=== PATIENT | female | born 1970 | race African-American/Black ===

== ENCOUNTER 2021-07-04 08:01 | Inpatient (IN) | payer BC, MEDICAID ==
[~2021-07-04] VITALS: Ht 157.5 cm; Wt 63.0 kg
[2021-07-04] MEDS ORDERED: NACL 0.9% 2,000 ML IV ONE (08:05)
--- NOTE | 2021-07-04 08:12 | NUR ---
50 Y FEMALE BIBA FROM HOME DUE TO GENERAL WEAKNESS A RESULT OF HIGH BLOOD SUGAR. PER EMS "PT WAS TOO TIRED TO TAKE HER MEDICATION LAST NIGHT AND HAS BEEN WEAK ALL MORNING." UPON ASSESSMENT GLUCOSE LEVEL WAS 547. PT CURRENTLY DENIES ANY PAIN, N/V AT THIS TIME. PT STATED "SHE IS EXTREMELY TIRED AT THIS MOMENT" ALLERGIES: PENCILLIN HX: DM Addendum: 07/04/21 at 1128 by [email or web address] MEDICAL HX: DM, HTN, HDL
[2021-07-04 08:13] VITALS: BP 97/58
--- NOTE | 2021-07-04 08:24 | NUR ---
LAB BEDSIDE COLLECTING BLOOD WORK
--- NOTE | 2021-07-04 08:24 | NUR ---
CARLOS FIGUEROA COLLECTED BEDSIDE AND HANDED TO SENIOR ACCOUNT DIRECTOR
--- NOTE | 2021-07-04 08:42 | NUR ---
URINE COLLECTED FROM PATIENT.
--- NOTE | 2021-07-04 08:50 | NUR ---
PT PROVIDED WITH WARM BLANKET AND PT MOTHER BEDSIDE
[2021-07-04 08:54] LABS: HEMATOCRIT 43.2 % (36-48); HEMOGLOBIN 13.5 g/dL (12.0-16.0); MEAN CORPUSCULAR HEMOGLOBIN 30 pg (27-31); MEAN CORPUSCULAR HGB CONC 31 g/dL (33-37); MEAN CORPUSCULAR VOLUME 96.9 fL (80-94); PLATELET COUNT (AUTO) 227 K/uL (140-450); RED BLOOD CELL COUNT(AUTO) 4.46 MIL/uL (4.20-5.40); WHITE BLOOD COUNT (AUTO) 18.3 K/uL (4.8-10.8)
--- NOTE | 2021-07-04 08:58 | NUR ---
xray bedside with pt
[2021-07-04 09:07] LABS: ALBUMIN 2.9 g/dL (3.4-5.0); ANION GAP 41.4 (8-16); CREATININE 1.9 mg/dL (0.6-1.3); LYMPHOCYTES % (MANUAL) 23 % (20-46); MONOCYTES % (MANUAL) 10 % (5-12); POTASSIUM 4.3 mmol/L (3.5-5.1); TOTAL BILIRUBIN 0.5 mg/dL (0.0-1.0)
[2021-07-04 09:11] LABS: CARBON DIOXIDE 5.9 mmol/L (21-32)
--- NOTE | 2021-07-04 09:13 | NUR ---
CRITICAL LAB VALUES RECIEVED FROM LAB AND REPORTED TO DR. POWELL
[2021-07-04] MEDS ORDERED: INSULIN REGULAR, HUMAN 100 UNIT in NACL 0.9% 100 ML IV ONE ×2 (09:15)
[2021-07-04] MEDS ORDERED: NACL 0.45% 1,000 ML IV ONE (09:15)
[2021-07-04] MEDS ORDERED: POTASSIUM CHL 20 MEQ/ 1/2 NS 1,000 ML IV ONE (09:15)
--- NOTE | 2021-07-04 09:17 | NUR ---
PT PROVIDED WITH CUP OF WATER BEDSIDE
--- NOTE | 2021-07-04 10:23 | NUR ---
pt cleaned and provided fresh linen.
[2021-07-04] MEDS ORDERED: MAG SULF 2000 MG/WATER PREMIX 50 ML IV PRN (10:30)
[2021-07-04] MEDS ORDERED: POTASSIUM CHLORIDE 40 MEQ, LIDOCAINE MPF 1% 25 MG in NACL 0.9% 250 ML IV PRN (10:30)
[2021-07-04] MEDS ORDERED: MORPHINE SULFATE 2 MG/ML SYR IVP PRN (10:30)
[2021-07-04] MEDS ORDERED: ACETAMINOPHEN 325 MG TAB PO PRN (10:30)
[2021-07-04] MEDS ORDERED: DOCUSATE SODIUM 100 MG GELCAP PO PRN (10:30)
[2021-07-04] MEDS: NACL 0.9% 1,000 ML IV SCH ×3 (10:30→23:12)
[2021-07-04] MEDS ORDERED: DEXTROSE 50% 50 ML SYR IVP PRN (10:30)
[2021-07-04] MEDS ORDERED: INSULIN REGULAR, HUMAN 100 UNIT in NACL 0.9% 100 ML IV SCH ×2 (10:30)
[2021-07-04] MEDS: BLOOD GLUCOSE MONITORING 1 DEV DEV FS SCH ×14 (10:43→23:25)
[2021-07-04 10:46] LABS: APPEARANCE,URINE SL CLOUDY (CLEAR); BILIRUBIN,URINE 1+ (NEGATIVE); BLOOD, URINE TRACE-I (NEGATIVE); COLOR,URINE YELLOW (YELLOW); LEUKOCYTE ESTERASE ,URINE NEGATIVE (NEGATIVE); NITRITE, URINE NEGATIVE (NEGATIVE); PH,URINE 5.5 (5.0-9.0); UGLUCOSE 3+ (NEGATIVE)
[2021-07-04 10:51] LABS: MAGNESIUM 2.4 mg/dL (1.8-2.4)
[2021-07-04 10:55] LABS: PHOSPHORUS 9.5 mg/dL (2.5-4.9)
[2021-07-04] MEDS: PANTOPRAZOLE 40 MG INJ VIAL IVP SCH (10:56)
[2021-07-04 11:07] LABS: FINE GRANULAR CASTS,URINE 0-10 /LPF (None Seen); WBC,URINE 0-5 /HPF (0-5)
[2021-07-04] MEDS: CALCIUM ACETATE 667 MG TAB PO SCH (11:15)
--- NOTE | 2021-07-04 11:38 | NUR ---
PT MOTHER PHONE NUMBER: [phone]
[2021-07-04] MEDS ORDERED: DAPA10TA PO (11:46)
[2021-07-04] MEDS ORDERED: LISI-487 PO (11:46)
[2021-07-04] MEDS ORDERED: ATOR20TA PO (11:46)
[2021-07-04] MEDS ORDERED: RIBO25TA PO (11:46)
[2021-07-04] MEDS ORDERED: ESCI20TA PO (11:50)
--- NOTE | 2021-07-04 12:00 | NUR ---
DR. YOUNG BEDSIDE EVALUATING PT
--- NOTE | 2021-07-04 13:35 | NUR ---
pt currently resting bedside with eyes closed. pt still on school bus monitor and vital signs stable. son currently bedside with pt. bed in lowest position with siderail x2 up. will continue to monitor
[2021-07-04] MEDS ORDERED: ERGO-30 PO (14:09)
[2021-07-04] MEDS ORDERED: [UNRECOGNIZED DRUG - CODE] PO (14:10)
[2021-07-04 14:20] LABS: ANION GAP 8.9 (8-16); CARBON DIOXIDE 32.9 mmol/L (21-32); CREATININE 0.7 mg/dL (0.6-1.3); POTASSIUM 3.8 mmol/L (3.5-5.1)
[2021-07-04 14:24] LABS: MAGNESIUM 2.3 mg/dL (1.8-2.4); PHOSPHORUS 2.5 mg/dL (2.5-4.9)
--- NOTE | 2021-07-04 14:35 | NUR ---
PT CLEANED AND PROVIDED WITH FRESH LINEN
--- NOTE | 2021-07-04 15:37 | NUR ---
PT CURRENTLY RESTING BEDSIDE WITH EYES CLOSED. BED IN LOWEST POSITION WITH SIDERAIL X2 UP. PT ON ROAD MANAGER AND VITAL SIGNS STABLE. WILL CONTINUE TO MONITOR
[2021-07-04 16:33] LABS: ANION GAP 29.8 (8-16); CARBON DIOXIDE 11.4 mmol/L (21-32); CREATININE 1.4 mg/dL (0.6-1.3); POTASSIUM 4.2 mmol/L (3.5-5.1)
--- NOTE | 2021-07-04 16:38 | NUR ---
PT SPOUSE BEDSIDE WITH PT. PT PROVIDED WITH FRESH LINEN AND WARM BLANKET
[2021-07-04] MEDS ORDERED: SODIUM BICARBONATE 8.4% 100 MEQ in NACL 0.9% 1,000 ML IV ONE (17:10)
[2021-07-04] MEDS ORDERED: SODIUM BICARBONATE 8.4% PFS 50 MEQ/50 ML SYR IVP ONE ×2 (17:13→21:23)
[2021-07-04] MEDS ORDERED: SODIUM BICARBONATE 8.4% 100 MEQ in NACL 0.9% 1,000 ML IV SCH (17:15)
--- NOTE | 2021-07-04 17:22 | NUR ---
Spoke with dewayne in pharmacy and was given the okay to run sodium bicarbonate and potassium chloride in same IV. Was told they are compatiable and okay to create Y-port on same IV
[2021-07-04 18:01] LABS: BARBITURATE, URINE NEGATIVE ng/ml (NEG <=200); BENZODIAZEPINE, URINE NEGATIVE ng/mL (NEG <=200); CANNABINOID, URINE NEGATIVE ng/mL (NEG <=50); COCAINE, URINE NEGATIVE ng/mL (NEG <=300); OPIATE, URINE NEGATIVE ng/mL (NEG <=2000); PHENCYCLIDINE SCREEN,URINE NEGATIVE ng/mL (NEG <=25)
[2021-07-04] MEDS: ONDANSETRON 4 MG/2 ML VIAL IM/IVP PRN (18:07)
--- NOTE | 2021-07-04 18:07 | NUR ---
PT VOMITTED BEDSIDE AND GIVEN ZOFRAN. PT CLEANED AND PROVIDED WITH FRESH LINEN
--- NOTE | 2021-07-04 18:24 | NUR ---
Patient will be admitted to care of DR. COLLINS. Admited to ICU. Will go to room ICU 4. Belongings list completed. Report to MARIANO CANTU.
--- NOTE | 2021-07-04 18:30 | NUR ---
R ECEIVED FROM ER IN [facility], SHEIS AWAKE AND ALERT FOLLOW COMMAND. SKIN DRY AND WARM YTO TOUCH IV ON RT ARM AND LEFT ARN INFUSING NS AT 150ML/HR, INSULIN IVDRIP A2UNIT/HR 20MEQ K IN 0.45NS AT 100ML/HR. THE IV SITE ARE FUNCTION AND INTACT. BLOOD GLUCOSE 197AT THE TIME.
[2021-07-04 19:00] VITALS: BP 111/60
--- NOTE | 2021-07-04 19:30 | NUR ---
RECEIVED PATIENT FROM AM SHIFT NURSE FOR CONTINUITY. ALERT, ABLE TO MAKE NEEDS KNOWN. RESPIRATIONS EVEN, UNLABORED. NO S/S RESPIRATORY DISTRESS. O2SAT 99%. S1/S2 AUSCULTATED. SKIN ASSESSMENT COMPLETED. SKIN IS INTACT. IV SITE TO LEFT FOREARM 18G PATENT/INTACT, INFUSING FLUIDS WELL. IV SITE TO RIGHT AC 20G PATENT/INTACT, INFUSING INSULIN DRI WELL. ABDOMEN SOFT, NONTENDER, NONDISTENDED. BOWEL SOUNDS ACTIVE x4 QUADRANTS. PATIENT IS CONTINENT OF B/B. MRSA SCREEN COMPLETED. PATIENT ORIENTED TO ROOM/STAFF AND CALL LIGHT. SAFETY PRECAUTIONS IN PLACE. CALL LIGHT WITHIN REACH AT ALL TIMES.
--- NOTE | 2021-07-04 19:30 | NUR ---
REPORT GIVE TO
[2021-07-04 20:00] VITALS: BP 111/73
[2021-07-04 20:33] LABS: ANION GAP 30.6 (8-16); CARBON DIOXIDE 9.9 mmol/L (21-32); CREATININE 1.4 mg/dL (0.6-1.3); POTASSIUM 4.5 mmol/L (3.5-5.1)
[2021-07-04 20:50] LABS: MAGNESIUM 1.8 mg/dL (1.8-2.4); PHOSPHORUS 2.9 mg/dL (2.5-4.9)
[2021-07-04 21:00] VITALS: BP 115/78
--- NOTE | 2021-07-04 21:00 | NUR ---
DUE MEDS GIVEN. PATIENT HAD ONE EPISODE OF DARK BROWN EMESIS. NO C/O OF NAUSEA AFTER EPISODE. PATIENT IS SLEEPING WELL. NO S/S RESPIRATORY DISTRESS. NO C/O PAIN. CALL LIGHT IN REACH. IS AT BEDSIDE.
[2021-07-04] MEDS: ATORVASTATIN 20 MG TAB PO SCH (21:07)
[2021-07-04 21:28] LABS: MAGNESIUM 1.9 mg/dL (1.8-2.4); PHOSPHORUS 3.7 mg/dL (2.5-4.9)
[2021-07-04 22:00] VITALS: BP 106/64
[2021-07-04 23:00] VITALS: BP 126/75
--- NOTE | 2021-07-04 23:09 | NUR ---
PATIENT RESTING COMFORTABLY IN BED. NO S/S RESPIRATORY DISTRESS. NO C/O PAIN. NO EPISODES OF N/V. PATIENT IS CLEAN/DRY. CALL LIGHT IN REACH.
[2021-07-04] MEDS: SODIUM BICARBONATE 8.4% 100 MEQ in NACL 0.9% 1,000 ML IV SCH (23:15)
[2021-07-05] VITALS (19 sets, daily range): BP systolic 99–158; BP diastolic 65–90
[2021-07-05] MEDS: BLOOD GLUCOSE MONITORING 1 DEV DEV FS SCH ×24 (00:26→23:30)
[2021-07-05 00:51] LABS: ANION GAP 26.9 (8-16); CARBON DIOXIDE 12.1 mmol/L (21-32); CREATININE 1.2 mg/dL (0.6-1.3)
[2021-07-05 00:54] LABS: MAGNESIUM 1.8 mg/dL (1.8-2.4); PHOSPHORUS 2.8 mg/dL (2.5-4.9)
--- NOTE | 2021-07-05 01:06 | NUR ---
PATIENT WITH EPISODE OF INCONTINENCE. PATIENT HAS GENERALIZED WEAKNESS. INCONTINENT CARE RENDERED. PATIENT IS RESTING COMFORTABLY IN BED. NO C/O PAIN. NO S/S RESPIRATORY DISTRESS.
--- NOTE | 2021-07-05 03:15 | NUR ---
INCONTINENT CARE RENDERED.
[2021-07-05] MEDS ORDERED: SODIUM BICARBONATE 8.4% PFS 50 MEQ/50 ML SYR IVP ONE (03:29)
--- NOTE | 2021-07-05 05:43 | NUR ---
PATIENT ASLEEP. NO S/S RESPIRATORY DISTRESS. PATIENT IS CLEAN/DRY. CALL LIGHT IN REACH.
[2021-07-05 06:15] LABS: BASOPHILS # (AUTO) 0.1 K/uL (0.00-0.22); BASOPHILS % (AUTO) 0.8 % (0.0-2.0); EOSINOPHILS # (AUTO) 0.4 K/uL (0-0.4); EOSINOPHILS % (AUTO) 2.6 % (0.0-4.0); HEMATOCRIT 35.7 % (36-48); HEMOGLOBIN 12.3 g/dL (12.0-16.0); LYMPHOCYTES # (AUTO) 2.2 K/uL (2.5-16.5); LYMPHOCYTES % (AUTO) 14.2 % (20.5-51.1); MEAN CORPUSCULAR HEMOGLOBIN 31 pg (27-31); MEAN CORPUSCULAR HGB CONC 34 g/dL (33-37); MEAN CORPUSCULAR VOLUME 90.8 fL (80-94); MONOCYTES # (AUTO) 1.7 K/uL (0.8-1.0); NEUTROPHILS % (AUTO) 71.4 % (42.2-75.2); PLATELET COUNT (AUTO) 219 K/uL (140-450); RED BLOOD CELL COUNT(AUTO) 3.93 MIL/uL (4.20-5.40); RED CELL DISTRIBUTION WIDTH 13.6 % (11.6-13.7); WHITE BLOOD COUNT (AUTO) 15.4 K/uL (4.8-10.8)
[2021-07-05 06:17] LABS: ANION GAP 28.4 (8-16); CARBON DIOXIDE 12.3 mmol/L (21-32); CREATININE 1.2 mg/dL (0.6-1.3); POTASSIUM 3.7 mmol/L (3.5-5.1)
[2021-07-05] MEDS: SODIUM BICARBONATE 8.4% 100 MEQ in NACL 0.9% 1,000 ML IV SCH (06:26)
--- NOTE | 2021-07-05 07:30 | NUR ---
RECEIVED REPORT FROM LEONELA PT IS AWAKE IV INSULIN DRIP ON RT AC AND D5 .45 NS 0N , SHE IS NPO AT THE TIME
--- NOTE | 2021-07-05 07:34 | NUR ---
ENDORSED PATIENT TO AM SHIFT NURSE FOR CONTINUITY OF CARE.
[2021-07-05] MEDS: CALCIUM ACETATE 667 MG TAB PO SCH (08:00)
--- NOTE | 2021-07-05 08:00 | NUR ---
SEEN BY DR DEINSE AT BEDSIDE SYDNIE RECEIVED.
[2021-07-05 08:10] LABS: ANION GAP 26.6 (8-16); CARBON DIOXIDE 13.1 mmol/L (21-32); CREATININE 1.1 mg/dL (0.6-1.3); POTASSIUM 3.7 mmol/L (3.5-5.1)
--- NOTE | 2021-07-05 08:58 | NUR ---
PATIENT HAS BEEN SCREENED AND CATEGORIZED HIGH NUTRITION RISK. PATIENT WILL BE SEEN WITHIN 1-2 DAYS OF ADMISSION. 07/05/[address]
--- NOTE | 2021-07-05 09:11 | NUR ---
DC PL[age] YRS OLD FEMALE PATIENT WAS ADMITTED FROM HOME WITH A DX OF DKA . PT HAS A HX OF DM, HTN AND HLD. CXR SHOWED NO ACUTE CARDIOPULMONARY DISEASE. RAPID COVID TEST NEGATIVE. BLOOD GLUCOSE ON ADMISSION 545 ANION GAP WAS 41.4. K+ 2.7 PATIENT WAS ADMITTED TO ICU FOR INSULIN DRIP. REPLETE POTASSIUM CONSULTED WITH NEPHRO AND PULMO. DC PLAN TO GO HOME WHEN STABLE CM TO FOLLOW
[2021-07-05] MEDS: PANTOPRAZOLE 40 MG INJ VIAL IVP SCH (09:44)
[2021-07-05] MEDS: ESCITALOPRAM 20 MG TAB PO SCH (09:46)
[2021-07-05 11:18] LABS: PHOSPHORUS 2.3 mg/dL (2.5-4.9)
--- NOTE | 2021-07-05 11:30 | NUR ---
SEEN BY DR EASLEY SAID TO CONTINUR INSULIN DRIP UNTIL THE GAP IS CLOSE.
[2021-07-05 12:26] LABS: ANION GAP 30.7 (8-16); CARBON DIOXIDE 10.2 mmol/L (21-32); CREATININE 1.2 mg/dL (0.6-1.3); POTASSIUM 3.9 mmol/L (3.5-5.1)
[2021-07-05] MEDS: DEXT 5% / NACL 0.45% 1,000 ML IV SCH ×3 (13:18→22:25)
[2021-07-05] MEDS: SODIUM BICARBONATE 8.4% PFS 50 MEQ/50 ML SYR IVP SCH ×2 (13:19→17:37)
--- NOTE | 2021-07-05 15:00 | NUR ---
07/05/21 RD INITIAL ASSESSMENT COMPLETED PLEASE REFER TO NUTRITION ASSESSMENT UNDER CARE ACTIVITY FOR ESTIMATED NUTRITIONAL NEEDS. 1. CONTINUE CLEAR LIQUID DIET TOLERATED 2. RD PROVIDED DIABETES EDUCATION HANDOUT AT BEDSIDE. 3. IF AND WHEN MEDICALLY STABLE, CONSIDER ADVANCING TO [facility] 45G DIET. 4. RD TO FOLLOW-UP 2-3DAYS,HIGH RISK OSCAR MORGAN RD
[2021-07-05 16:16] LABS: ANION GAP 26.7 (8-16); CARBON DIOXIDE 12.4 mmol/L (21-32); CREATININE 1.2 mg/dL (0.6-1.3); POTASSIUM 3.1 mmol/L (3.5-5.1)
--- NOTE | 2021-07-05 17:30 | NUR ---
BLOOD GLUCOSE 228
[2021-07-05] MEDS ORDERED: SODIUM BICARBONATE 8.4% PFS 50 MEQ/50 ML SYR IVP SCH (18:00)
--- NOTE | 2021-07-05 19:30 | NUR ---
REPORT RECEIVED PATIENT IS ASLEEP BEDSIDE COMMODE , CALL LIGHT WITHIN REACH NEW ORDERS NOTED PATIENT WITH FAMILY AT BEDSIDE
[2021-07-05 20:27] LABS: ANION GAP 24.5 (8-16); CARBON DIOXIDE 15.2 mmol/L (21-32); CREATININE 1.3 mg/dL (0.6-1.3)
[2021-07-05 20:33] LABS: POTASSIUM 2.7 mmol/L (3.5-5.1)
--- NOTE | 2021-07-05 20:43 | NUR ---
CALL TO DR YOUNG REPORT POTASSIUM RESULT OF 2.7,TELEPHONE ORDER OKAY TO GIVE POTASSIUM RIDER 40 MEQ ,AVAILABLE IN STOCK
[2021-07-05] MEDS ORDERED: KCL 20 MEQ/WATER INJ PREMIX 200 ML IV ONE (21:14)
[2021-07-05] MEDS ORDERED: KCL 20 MEQ/WATER INJ PREMIX 200 ML IV SCH (21:15)
[2021-07-05] MEDS: ATORVASTATIN 20 MG TAB PO SCH (21:57)
[2021-07-05] MEDS ORDERED: POTASSIUM CHLORIDE 10 MEQ TABER PO PRN (22:05)
[2021-07-06] VITALS (18 sets, daily range): BP systolic 118–154; BP diastolic 65–87
[2021-07-06] MEDS: SODIUM BICARBONATE 8.4% PFS 50 MEQ/50 ML SYR IVP SCH ×2 (00:42→06:36)
[2021-07-06] MEDS: BLOOD GLUCOSE MONITORING 1 DEV DEV FS SCH ×24 (00:43→23:59)
--- NOTE | 2021-07-06 00:44 | NUR ---
patient with results 149 and 127 per protocol patient now with q 2 hour accucheck tolerated clear liquid without any further episodes of vomiting labs drawn awaiting results
[2021-07-06 00:56] LABS: ANION GAP 25.1 (8-16); CARBON DIOXIDE 13.8 mmol/L (21-32); CREATININE 1.2 mg/dL (0.6-1.3)
[2021-07-06 01:00] LABS: POTASSIUM 2.9 mmol/L (3.5-5.1)
[2021-07-06] MEDS: ONDANSETRON 4 MG/2 ML VIAL IM/IVP PRN ×2 (01:32→08:51)
--- NOTE | 2021-07-06 01:33 | NUR ---
PT C/O NAUSEA; ZOFRAN ADMIN ORDERED.WILL CONTINUE TO CLOSELY MONITOR PT
[2021-07-06] MEDS: DEXT 5% / NACL 0.45% 1,000 ML IV SCH ×2 (03:25→08:50)
[2021-07-06 05:49] LABS: BASOPHILS # (AUTO) 0.1 K/uL (0.00-0.22); BASOPHILS % (AUTO) 0.6 % (0.0-2.0); HEMOGLOBIN 11.3 g/dL (12.0-16.0); LYMPHOCYTES % (AUTO) 8.9 % (20.5-51.1); MEAN CORPUSCULAR HEMOGLOBIN 31 pg (27-31); MEAN CORPUSCULAR HGB CONC 33 g/dL (33-37); MEAN CORPUSCULAR VOLUME 91.6 fL (80-94); MONOCYTES # (AUTO) 1.4 K/uL (0.8-1.0); MONOCYTES % (AUTO) 12.3 % (1.7-9.3); NEUTROPHILS # (AUTO) 9.1 K/uL (1.8-7.7); NEUTROPHILS % (AUTO) 78.2 % (42.2-75.2); PLATELET COUNT (AUTO) 161 K/uL (140-450); RED BLOOD CELL COUNT(AUTO) 3.71 MIL/uL (4.20-5.40); RED CELL DISTRIBUTION WIDTH 13.6 % (11.6-13.7); WHITE BLOOD COUNT (AUTO) 11.6 K/uL (4.8-10.8)
[2021-07-06 05:59] LABS: ANION GAP 23.6 (8-16); CARBON DIOXIDE 16.4 mmol/L (21-32); CREATININE 1.1 mg/dL (0.6-1.3)
--- NOTE | 2021-07-06 07:30 | NUR ---
BEDSIDE REPORT RECEIVED FROM SALES SOLUTIONS REPRESENTATIVE NURSE, PT RESTING WITH EYES CLOSED, AROUSES EASILY TO VOICE, O X4, DENIES PAIN OR DISCOMFORT, RESP EVEN UNLABORED ON ROOM AIR, SKIN WARM DRY COLOR WNL, CAP REFILL <3SEC, SINUS TACHYCARDIA 118 ON CONTINUOUS MEAT COUNTER CLERK, IV TO RIGHT HAND 24G, LEFT FA 18G INFUSING D5 1/5NS AT 200ML/HR AND INSULIN DRIP AT 1UNIT/HR, IV SITES WNL, ABD SOFT NON DISTENDED, WHITNEY CATH IN PLACE, DRAINING CLEAR LIGHT YELLOW URINE, PLAN OF CARE REVIEWED AND DISCUSSED, ALL SAFETY MEASURES IN PLACE.
[2021-07-06 08:04] LABS: ANION GAP 26.1 (8-16); CARBON DIOXIDE 14.9 mmol/L (21-32); CREATININE 1.1 mg/dL (0.6-1.3)
[2021-07-06] MEDS: ESCITALOPRAM 20 MG TAB PO SCH (08:17)
[2021-07-06] MEDS: PANTOPRAZOLE 40 MG INJ VIAL IVP SCH (08:17)
--- NOTE | 2021-07-06 08:22 | NUR ---
MEDICAL STUDENT AT BEDSIDE FOR EVAL
--- NOTE | 2021-07-06 08:30 | NUR ---
[facility] BLOOD DRAW TO LEFT AC FOR VBG, SPECIMEN HANDED TO RT MENDES.
--- NOTE | 2021-07-06 08:43 | NUR ---
AM MEDS GIVEN, PT SWALLOWS PILLS WITHOUT PROBLEM, C/O NAUSEA, WILL GIVEN ZOFRAN.
--- NOTE | 2021-07-06 10:01 | NUR ---
BROTHER VISITING AT BEDSIDE
--- NOTE | 2021-07-06 11:14 | NUR ---
DR EASLEY AT BEDSIDE
[2021-07-06] MEDS ORDERED: NACL 0.9% 1,000 ML IV PRN (11:15)
[2021-07-06] MEDS ORDERED: INSULIN REGULAR, HUMAN 100 UNIT in NACL 0.9% 100 ML IV SCH ×2 (11:15)
[2021-07-06] MEDS ORDERED: MAG SULF 2000 MG/WATER PREMIX 50 ML IV ONE (11:15)
[2021-07-06] MEDS ORDERED: DEXTROSE 10% 1,000 ML IV ONE (11:33)
[2021-07-06] MEDS: DEXTROSE 10% 1,000 ML IV SCH ×2 (11:47→21:07)
[2021-07-06 12:20] LABS: ANION GAP 22.7 (8-16); CREATININE 1.2 mg/dL (0.6-1.3)
--- NOTE | 2021-07-06 12:20 | NUR ---
PT ASSISTED WITH CLEAR LIQ LUNCH TRAY, LISA 25% (200ML) WITH ASSIST.
[2021-07-06 12:25] LABS: MAGNESIUM 1.8 mg/dL (1.8-2.4); PHOSPHORUS 1.5 mg/dL (2.5-4.9)
[2021-07-06 13:42] LABS: POTASSIUM 2.7 mmol/L (3.5-5.1)
[2021-07-06] MEDS ORDERED: POTASSIUM CHLORIDE 10 MEQ TABER PO SCH (14:00)
[2021-07-06] MEDS: KCL 20 MEQ/WATER INJ PREMIX 200 ML IV PRN ×2 (14:06→21:25)
--- NOTE | 2021-07-06 14:07 | NUR ---
K RIDER IV STARTED PER PRN ORDER FOR K =2.7
[2021-07-06] MEDS ORDERED: SODIUM PHOS / POTASSIUM PHOS 1 PKT PDR PO SCH (14:15)
--- NOTE | 2021-07-06 15:38 | NUR ---
BLOOD SUGAR 157 INSULIN DRIP RATE DECREASED TO 0.05 UNITS/KG/HR AND IVF TO D10W AT 150ML/HR
--- NOTE | 2021-07-06 16:05 | NUR ---
PT'S MOTHER AT BEDSIDE, MARILYN SAGASTUME [phone], PT REQUESTS DOCTOR TO CALL HER MOTHER WITH MEDICAL CONDITION UPDATE, WILL NOTIFY .
[2021-07-06 16:45] LABS: ANION GAP 17.2 (8-16); CARBON DIOXIDE 20.1 mmol/L (21-32); CREATININE 1.2 mg/dL (0.6-1.3); POTASSIUM 3.3 mmol/L (3.5-5.1)
--- NOTE | 2021-07-06 18:30 | NUR ---
BLOOD SUGAR 209, INSULIN INCREASED TO 0.1U/KG/HR
--- NOTE | 2021-07-06 18:45 | NUR ---
BED BATH GIVEN, WHITNEY CARE DONE, LINEN AND GOWN CHANGED.
--- NOTE | 2021-07-06 19:00 | NUR ---
report taken at bedside , insulin drip adjusted per protocol patient is alert and orient with eyes close on monitor denies pain plan of care reviewed with patient no questions at this time orders reviewed
--- NOTE | 2021-07-06 19:27 | NUR ---
BS 168, INSULIN DECREASED TO 0.05U/KG/HR AND D10W, REPORT GIVEN TO TOP STOP ATTACHER NURSE
[2021-07-06 20:56] LABS: ANION GAP 16.6 (8-16); CARBON DIOXIDE 20.5 mmol/L (21-32); CREATININE 1.1 mg/dL (0.6-1.3); POTASSIUM 3.1 mmol/L (3.5-5.1)
[2021-07-06 21:01] LABS: MAGNESIUM 2.3 mg/dL (1.8-2.4)
[2021-07-06 21:02] LABS: PHOSPHORUS 0.9 mg/dL (2.5-4.9)
[2021-07-06] MEDS: ATORVASTATIN 20 MG TAB PO SCH (21:03)
[2021-07-06] MEDS: SODIUM PHOS / POTASSIUM PHOS 1 PKT PDR PO PRN (21:38)
[2021-07-07] VITALS (15 sets, daily range): BP systolic 122–169; BP diastolic 63–86
[2021-07-07 00:08] LABS: MAGNESIUM 2.3 mg/dL (1.8-2.4)
[2021-07-07 00:30] LABS: ANION GAP 14.3 (8-16); CARBON DIOXIDE 22.2 mmol/L (21-32); CREATININE 1.1 mg/dL (0.6-1.3); POTASSIUM 3.5 mmol/L (3.5-5.1)
[2021-07-07] MEDS: BLOOD GLUCOSE MONITORING 1 DEV DEV FS SCH ×14 (00:30→21:03)
--- NOTE | 2021-07-07 00:30 | NUR ---
CRITICAL RESULTS FOR PHOSPHORUS CALLED TO MD AND NOTED PER PROTOCOL
[2021-07-07 00:34] LABS: PHOSPHORUS 1.2 mg/dL (2.5-4.9)
[2021-07-07] MEDS: DEXTROSE 10% 1,000 ML IV SCH ×2 (01:33→07:25)
[2021-07-07] MEDS: SODIUM PHOS / POTASSIUM PHOS 1 PKT PDR PO PRN ×2 (01:35→07:29)
[2021-07-07 06:21] LABS: BASOPHILS # (AUTO) 0.1 K/uL (0.00-0.22); EOSINOPHILS % (AUTO) 0.2 % (0.0-4.0); HEMATOCRIT 32.2 % (36-48); LYMPHOCYTES # (AUTO) 1.6 K/uL (2.5-16.5); LYMPHOCYTES % (AUTO) 15.2 % (20.5-51.1); MEAN CORPUSCULAR HEMOGLOBIN 31 pg (27-31); MEAN CORPUSCULAR HGB CONC 34 g/dL (33-37); MEAN CORPUSCULAR VOLUME 89.6 fL (80-94); MONOCYTES # (AUTO) 1.4 K/uL (0.8-1.0); NEUTROPHILS # (AUTO) 7.4 K/uL (1.8-7.7); NEUTROPHILS % (AUTO) 70.6 % (42.2-75.2); PLATELET COUNT (AUTO) 155 K/uL (140-450); RED CELL DISTRIBUTION WIDTH 13.2 % (11.6-13.7); WHITE BLOOD COUNT (AUTO) 10.4 K/uL (4.8-10.8)
[2021-07-07 06:32] LABS: MAGNESIUM 1.7 mg/dL (1.8-2.4)
[2021-07-07 06:38] LABS: ANION GAP 13.8 (8-16); CARBON DIOXIDE 24.1 mmol/L (21-32)
--- NOTE | 2021-07-07 06:42 | NUR ---
PATIENT WITH TWO CONSECUTIVE ACCUCHECKS WITHIN RANGE GAP IS NOW WNL CLARIFICATION OF ORDERS TO CONTINUE WITH INSULIN DRIP AT 0.05U/KG/HR WITH D10W AT 150ML/HR SPOKE WITH DR YOUNG STATED TO CONTINUE UNTIL FURTHER ORDERS GIVEN PATIENT IS AWAKE AND TOLERATING FLUIDS WITHOUT NAUSEA OR VOMITING NOTED ABLE TO SPEAK WITH FAMILY BY PHONE. REFUSED AM CARE STATES ITS TO COLD WOULD LIKE TO SLEEP AND WILL DO IT LATER
[2021-07-07 06:55] LABS: POTASSIUM 2.9 mmol/L (3.5-5.1)
[2021-07-07 06:58] LABS: PHOSPHORUS 0.7 mg/dL (2.5-4.9)
[2021-07-07] MEDS: KCL 20 MEQ/WATER INJ PREMIX 200 ML IV PRN (07:15)
--- NOTE | 2021-07-07 07:31 | NUR ---
report to Megan QUINTANA , lab results reviewed abnormal labs endorsed that DR YOUNG WILL SEE PATIENT for further orders INSULIN DRIP AT 0.05U/KG /HR WITH D10 AT 150/HR
--- NOTE | 2021-07-07 07:32 | NUR ---
RECEIVED REPORT FROM OSCAR UQINTANA PT. SLEEPING IN BED, RESPONSE TO VERBAL COMMAND,IV FLUID RT HAND IN PROGRESS WITH INSULI N AT 0.5UNIT/KG/H ON RT AMM WITH D5 0 45 NS AT 150ML/HR. WHITNEY CATH DRAIN PALE YELLOW URINE
[2021-07-07 08:20] LABS: ANION GAP 13.3 (8-16); CARBON DIOXIDE 23.8 mmol/L (21-32); CREATININE 1.1 mg/dL (0.6-1.3); POTASSIUM 3.1 mmol/L (3.5-5.1)
[2021-07-07 08:24] LABS: PHOSPHORUS 1.6 mg/dL (2.5-4.9)
[2021-07-07] MEDS: ESCITALOPRAM 20 MG TAB PO SCH (09:00)
[2021-07-07] MEDS: PANTOPRAZOLE 40 MG INJ VIAL IVP SCH (09:00)
[2021-07-07] MEDS ORDERED: POTASSIUM PHOSPHATE 15 MM in NACL 0.9% 250 ML IV SCH (09:30)
--- NOTE | 2021-07-07 09:30 | NUR ---
BLOOD GLUCOSE 170 ON INNSULIN DRIP.
--- NOTE | 2021-07-07 09:30 | NUR ---
BLOOD GLUCOSE 162 INSULIN DRIP ION PROGRESS,
[2021-07-07] MEDS: INSULIN LANTUS 100 UNITS/ML 10 ML VIAL SUBQ SCH (10:30)
--- NOTE | 2021-07-07 12:00 | NUR ---
SEEN BY DR EASLEY AT BED SIDE ORDER RECEIVED.
[2021-07-07 12:45] LABS: MAGNESIUM 2.1 mg/dL (1.8-2.4); PHOSPHORUS 1.7 mg/dL (2.5-4.9)
--- NOTE | 2021-07-07 12:45 | NUR ---
07/07/21 RD FOLLOW UP COMPLETED PLEASE REFER TO NUTRITION ASSESSMENT UNDER CARE ACTIVITY FOR ESTIMATED NUTRITIONAL NEEDS. 1. CONTINUE [facility] DIET TOLERATED. 2. RD WILL PROVIDE DIABETES NUTRITION EDUCATION WHEN PT IS ALERT. 3. RD TO FOLLOW-UP 3-5 DAYS,MODERATE RISK OSCAR MORGAN RD
[2021-07-07 13:26] LABS: POTASSIUM 2.9 mmol/L (3.5-5.1)
[2021-07-07 13:27] LABS: ANION GAP 10.4 (8-16); CARBON DIOXIDE 26.5 mmol/L (21-32)
[2021-07-07] MEDS: NACL 0.9% 1,000 ML IV SCH (14:34)
--- NOTE | 2021-07-07 15:10 | NUR ---
SEEN BY DR ESPINO AT BED SIDE. ORDER RECEIVED , MEDICATION GAVE ORDERED.
[2021-07-07] MEDS: METOPROLOL 25 MG TAB PO SCH ×2 (15:15→20:40)
--- NOTE | 2021-07-07 17:30 | NUR ---
VISIT BY HER BOYFRIEND AT BED SIDE.
--- NOTE | 2021-07-07 18:00 | NUR ---
PT REFUSE HER DINNER, BLOOD GLUCOSE 185 INSULIN COVER GIVEN ORDERED.
[2021-07-07 18:55] LABS: ANION GAP 14.9 (8-16); CARBON DIOXIDE 22.9 mmol/L (21-32); CREATININE 0.9 mg/dL (0.6-1.3); POTASSIUM 3.8 mmol/L (3.5-5.1)
--- NOTE | 2021-07-07 19:23 | NUR ---
PT RESTING QUIETLY. REPORT GIVE TO ZEUS QUINTANA.
--- NOTE | 2021-07-07 19:25 | NUR ---
RECEIVED PATIENT ON BED, AWAKE AND ALERT, ABLE TO MOVE LIMBS FREELY. BREATHING EVEN AND UNLABORED, ON ROOM AIR. CARDDIACSCOPESHOWS ON SINUS RHYTHM HR 98/MIN NO ARRHYTHMIAS SEEN. IVF IN PROGRESS NORMAL SALINE AT 40 ML/HR VIA G 22 IV CANNULA ON LEFT ARM; PATENT AND INTACT. ABDOMEN IS SOFT, ACTIVE BOWEL SOUNDS. WITH WHITNEY CATH IN SITU TO GRAVITY DRAINAGE BAG DRAINING TO CLEAR YELLOW URINE OUTPUT; INTACT.
--- NOTE | 2021-07-07 20:30 | NUR ---
DINNER FOOD OFFERRED BUT SHE REFUSED TO EAT HER FOOD; JUST DRINKED A CUP OF APPLE JUICE.
[2021-07-07] MEDS: INSULIN LISPRO SLIDING SCALE 100 UNITS/ML VIAL SUBQ PRN (20:45)
--- NOTE | 2021-07-07 21:00 | NUR ---
PATIENT WAS INFORMED AND AWARE THAT SHE'LL BE TRANSFERRED TO TELEMETRY UNIT [facility].
[2021-07-07] MEDS: ATORVASTATIN 20 MG TAB PO SCH (21:03)
--- NOTE | 2021-07-07 22:10 | NUR ---
TRANSFERRED TO TELE UNIT ROOM 121A PER BED IN FAIR CONDITION. ENDORSED TO RN IRIS FOR CONTINUITY OF CARE
[2021-07-08] VITALS: BP 122/65
--- NOTE | 2021-07-08 01:16 | NUR ---
PATIENT TO [id number] AWAKE NO C/O OF PAIN LUNGS CLEAR SAT 99% ON MONITOR SINUS HAS NS INFUSING 40 HOUR VIA 18 GA IN LEFT ARM. RIGHT HAND HAS 24 GA INTACT PATIENT TO FLUSH HAS F/C DRAINING YELLOW URINE ICU NURSE ZEUS GAVE REPORT 2199. NO SIGNS OF DISTRESS.
[2021-07-08] MEDS: NACL 0.9% 1,000 ML IV SCH ×2 (03:30→21:15)
[2021-07-08 04:00] VITALS: BP 120/66
[2021-07-08 06:25] LABS: BASOPHILS # (AUTO) 0.1 K/uL (0.00-0.22); BASOPHILS % (AUTO) 1.1 % (0.0-2.0); EOSINOPHILS % (AUTO) 0.2 % (0.0-4.0); HEMATOCRIT 32.2 % (36-48); LYMPHOCYTES # (AUTO) 1.7 K/uL (2.5-16.5); LYMPHOCYTES % (AUTO) 19.7 % (20.5-51.1); MEAN CORPUSCULAR HEMOGLOBIN 30 pg (27-31); MEAN CORPUSCULAR HGB CONC 34 g/dL (33-37); MEAN CORPUSCULAR VOLUME 89.2 fL (80-94); MONOCYTES % (AUTO) 12.1 % (1.7-9.3); NEUTROPHILS # (AUTO) 5.7 K/uL (1.8-7.7); NEUTROPHILS % (AUTO) 66.9 % (42.2-75.2); PLATELET COUNT (AUTO) 156 K/uL (140-450); RED BLOOD CELL COUNT(AUTO) 3.61 MIL/uL (4.20-5.40); RED CELL DISTRIBUTION WIDTH 12.9 % (11.6-13.7); WHITE BLOOD COUNT (AUTO) 8.4 K/uL (4.8-10.8)
--- NOTE | 2021-07-08 06:52 | NUR ---
DCD F/C 0645 1000 OUT.
--- NOTE | 2021-07-08 06:53 | NUR ---
BLOOD SUGAR 160 THIS A.M DID NOT COVER WILL REPORT TO TJ SHIFT. IN REPORT.
[2021-07-08 06:57] LABS: ANION GAP 16.1 (8-16); CARBON DIOXIDE 23.9 mmol/L (21-32); CREATININE 0.8 mg/dL (0.6-1.3)
[2021-07-08] MEDS: BLOOD GLUCOSE MONITORING 1 DEV DEV FS SCH ×4 (07:30→20:49)
[2021-07-08 08:00] VITALS: BP 156/82
--- NOTE | 2021-07-08 08:00 | NUR ---
NURSE REPORT REPORT OBTAINED FROM GEOVANI NURSE RICK AT 0740 AND THIS NURSE ASSUME CARE OF PATIENT. VSS. AFEB. NO C/O PAIN OR DISCOMFORT. IV NS INFUSING INTO L WRIST AT 40 ML/HR. ARIES SAM
--- NOTE | 2021-07-08 09:30 | NUR ---
NURSE CARE BLOOD GLUCOSE BEFORE BREAKFAST 160 AND PT RECEIVED 2 UNITS HUMALOG AND LANTUS 10 UNITS. BREAKFAST TAKEN POOR/
[2021-07-08] MEDS: INSULIN LANTUS 100 UNITS/ML 10 ML VIAL SUBQ SCH (09:44)
[2021-07-08] MEDS: INSULIN LISPRO SLIDING SCALE 100 UNITS/ML VIAL SUBQ PRN ×4 (09:48→20:49)
[2021-07-08] MEDS: ESCITALOPRAM 20 MG TAB PO SCH (09:50)
[2021-07-08 12:00] VITALS: BP 108/69
--- NOTE | 2021-07-08 13:00 | NUR ---
NURSE CARE Abundio. FARRAH. TELE MONITOR 106-113. PATIENT ANXIOUS WITH ROOMMATE YELLING AND SHE STATED HER YELLING KEPT HER AWAKE DURING THE NIGHT. BG BEFORE LUN 203- GIVEN 4 UNITS HUMALOG.
[2021-07-08] MEDS: PANTOPRAZOLE 40 MG INJ VIAL IVP SCH (13:06)
[2021-07-08 14:23] LABS: ANION GAP 18.1 (8-16); CARBON DIOXIDE 20.7 mmol/L (21-32); CREATININE 0.9 mg/dL (0.6-1.3)
[2021-07-08 14:37] LABS: POTASSIUM 2.8 mmol/L (3.5-5.1)
[2021-07-08 16:00] VITALS: BP 132/77
[2021-07-08] MEDS ORDERED: POTASSIUM CHLORIDE 40 MEQ, LIDOCAINE MPF 1% 25 MG in NACL 0.9% 250 ML IV ONE (16:05)
[2021-07-08] MEDS: KCL 20 MEQ/WATER INJ PREMIX 200 ML IV PRN ×2 (16:18→22:07)
--- NOTE | 2021-07-08 16:30 | NUR ---
NURSE CARE VSS. AFEB. GIVEN KCL FOR K OF 2.8 AT 1400 AND THIS AM- IT WAS 3.0. TELE MONITOR ST 106. BG 293. GIBRN 2 OTNSGR JUICE.
--- NOTE | 2021-07-08 19:50 | NUR ---
NURSE REPORT AND ENDORSEMENT REPORT GIVEN TO NIGHT NURSE MAUDE TO ASSUME CARE OF PATIENT. ALL QUESTIONS ASKED. BG BEFORE DINNER AT 1630- 193. DINNER SERVE LATE. GIVEN HUMALOG INSULIN 2 UNITS
--- NOTE | 2021-07-08 19:55 | NUR ---
RECIEVED BEDSIDE ENDORSEMENT FROM DAY SHIFT RN, PT A&0X4, ABLE TO MAKE NEEDS KNOWN AND FOLLOWS SIMPLE COMMANDS, FLACC 0, ST ON MONITOR, ON ROOM AIR, VSS, ABD SOFT AND NON TENDER TO TOUCH, SKIN WARM DRY AND INTACT, RH 22 G PIV SALINE LOCKED, LFA 18 G PIV INFUSING NS @150MLS/HR, PT SHOWING NO SIGNS OF ACUTE DISTRESS, SAFETY MEASURES IN PLACE, WILL CONTINUE WITH CURRENT POC
[2021-07-08 20:00] VITALS: BP 153/82
[2021-07-08] MEDS: ATORVASTATIN 20 MG TAB PO SCH (20:47)
[2021-07-08] MEDS: METOPROLOL 50 MG TAB PO SCH (20:48)
--- NOTE | 2021-07-08 20:49 | NUR ---
ADMINISTERED 2100H MEDICATIONS PER MD ORDERS, BLOOG GLUCOSE 192, ADMINISTERED 2 UNITS HUMALOG PER PROTOCOL
[2021-07-08 21:51] LABS: ANION GAP 18.3 (8-16); CARBON DIOXIDE 19.4 mmol/L (21-32); CREATININE 0.9 mg/dL (0.6-1.3)
[2021-07-08 21:53] LABS: POTASSIUM 2.7 mmol/L (3.5-5.1)
--- NOTE | 2021-07-08 22:07 | NUR ---
POTASSIUM 2.7, ADMINISTERED PRN POTASSIUM PER PROTOCOL
[2021-07-09] VITALS: BP 142/88
--- NOTE | 2021-07-09 00:26 | NUR ---
TRANSFERED PT TO ROOM 105A
[2021-07-09] MEDS: NACL 0.9% 1,000 ML IV SCH ×4 (03:06→23:07)
[2021-07-09 04:00] VITALS: BP 116/68
[2021-07-09] MEDS: BLOOD GLUCOSE MONITORING 1 DEV DEV FS SCH ×4 (06:32→21:00)
[2021-07-09] MEDS: INSULIN LISPRO SLIDING SCALE 100 UNITS/ML VIAL SUBQ PRN ×3 (06:33→18:06)
--- NOTE | 2021-07-09 06:33 | NUR ---
BLOOG GLUCOSE 177, ADMINISTERED 2 UNITS HUMALOG PER PROTOCOL
[2021-07-09 07:06] LABS: ANION GAP 18.7 (8-16); CREATININE 0.9 mg/dL (0.6-1.3)
[2021-07-09 07:18] LABS: BASOPHILS # (AUTO) 0.3 K/uL (0.00-0.22); BASOPHILS % (AUTO) 3.9 % (0.0-2.0); EOSINOPHILS % (AUTO) 0.4 % (0.0-4.0); HEMATOCRIT 31.6 % (36-48); HEMOGLOBIN 10.6 g/dL (12.0-16.0); LYMPHOCYTES # (AUTO) 1.4 K/uL (2.5-16.5); LYMPHOCYTES % (AUTO) 18.7 % (20.5-51.1); MEAN CORPUSCULAR HEMOGLOBIN 30 pg (27-31); MEAN CORPUSCULAR HGB CONC 34 g/dL (33-37); MEAN CORPUSCULAR VOLUME 89.9 fL (80-94); MONOCYTES # (AUTO) 0.9 K/uL (0.8-1.0); MONOCYTES % (AUTO) 11.3 % (1.7-9.3); NEUTROPHILS % (AUTO) 65.7 % (42.2-75.2); PLATELET COUNT (AUTO) 162 K/uL (140-450); RED BLOOD CELL COUNT(AUTO) 3.52 MIL/uL (4.20-5.40); RED CELL DISTRIBUTION WIDTH 13.1 % (11.6-13.7); WHITE BLOOD COUNT (AUTO) 7.6 K/uL (4.8-10.8)
--- NOTE | 2021-07-09 07:28 | NUR ---
ENDORSED TO DAY SHIFT RN FOR CONTINUITY OF CARE
[2021-07-09 08:00] VITALS: BP 149/82
--- NOTE | 2021-07-09 08:00 | NUR ---
RECEIVED REPORT FROM EMPLOYEE COMMUNICATIONS MANAGER AT BEDSIDE FOR CONTINUITY OF CARE. PATIENT ALERT AWAKE ORIENTED X4, NOT IN DISTRESS NOTED. DENIES PAIN AT THIS TIME. WITH IVF ON GOING AND INFUSING WELL. ON MONITOR SHOWS SR. NEEDS ATTENDED, WILL CONTINUE TO MONITOR.
[2021-07-09 08:01] LABS: POTASSIUM 2.7 mmol/L (3.5-5.1)
[2021-07-09] MEDS ORDERED: POTASSIUM CHLORIDE 40 MEQ, LIDOCAINE MPF 1% 25 MG in NACL 0.9% 250 ML IV ONE (08:30)
[2021-07-09] MEDS: ESCITALOPRAM 20 MG TAB PO SCH (08:49)
[2021-07-09] MEDS: PANTOPRAZOLE 40 MG INJ VIAL IVP SCH (08:50)
[2021-07-09] MEDS: METOPROLOL 50 MG TAB PO SCH ×2 (08:50→21:21)
[2021-07-09] MEDS: INSULIN LANTUS 100 UNITS/ML 10 ML VIAL SUBQ SCH (09:00)
--- NOTE | 2021-07-09 09:00 | NUR ---
DUE MEDS GIVEN AND TOLERATED WELL. IV LOOKS INFILTRATED, C/O PAIN ON THE IV SITE. WILL CONTINUE TO MONITOR.
[2021-07-09] MEDS: lisinopriL 20 MG TAB PO SCH (10:30)
--- NOTE | 2021-07-09 10:30 | NUR ---
NEW IV INSERTED ON THE RIGHT FOREARM G.22, IVF CONNECTED AND INFUSING WELL. WILL START K-RIDER. WILL CONTINUE TO MONITOR.
--- NOTE | 2021-07-09 11:21 | NUR ---
SEEN BY KEYMODULE ASSEMBLY MACHINE TENDER, NO NEW ORDER MADE. PATIENT RESTING IN BED. ENCOURAGE TO AMBULATE MORE.
[2021-07-09 12:00] VITALS: BP 123/72
[2021-07-09] MEDS: INSULIN LISPRO 100 UNITS/ML VIAL SUBQ SCH ×2 (12:50→16:30)
--- NOTE | 2021-07-09 14:29 | NUR ---
I TOLD PATIENT THAT THE PLAN IS SHE'S GOING HOME TODAY, PATIENT SAID IF POSSIBLE TOMORROW, REFUSED TO GO HOME AND REFUSED TO COOPERATE WITH THE PT TODAY. WILL CONTINUE TO MONITOR.
[2021-07-09 16:00] VITALS: BP 116/70
[2021-07-09 18:03] LABS: ANION GAP 19.6 (8-16); CARBON DIOXIDE 19.5 mmol/L (21-32); POTASSIUM 3.1 mmol/L (3.5-5.1)
--- NOTE | 2021-07-09 19:00 | NUR ---
REPORT GIVEN TO THE NIGHT NURSE AT BEDSIDE FOR CONTINUITY OF CARE. PATIENT IN STABLE CONDITION.
[2021-07-09 20:00] VITALS: BP 130/70
[2021-07-09] MEDS: ATORVASTATIN 20 MG TAB PO SCH (21:20)
[2021-07-09] MEDS: HYDROcodone/APAP 5/325 MG 1 TAB TAB PO PRN (21:21)
--- NOTE | 2021-07-09 22:12 | NUR ---
I RECEIVED PT IN BED FROM OUT GOING NURSE , PT IS ALERT ORIENTED , LOOKS WEAK , VSS , ON RA CLEAR LUNGS ,SKIN IS INTACT , ON RA CLEAR LUNGS .SL INTACT AND PATENT IVF INFUSING WELL .
[2021-07-10] VITALS: BP 130/69
--- NOTE | 2021-07-10 01:02 | NUR ---
PT IS SLEEPING WELL VSS NO SIGN OF PAIN
[2021-07-10] MEDS: HYDROcodone/APAP 5/325 MG 1 TAB TAB PO PRN (02:37)
[2021-07-10 04:00] VITALS: BP 138/74
[2021-07-10] MEDS: NACL 0.9% 1,000 ML IV SCH ×2 (06:13→13:15)
--- NOTE | 2021-07-10 06:17 | NUR ---
PT SLEPT WELL VSS DIAPER CHANGED 3 TIMES , SHE IS ALERT ORIENTED SHE CALL FOR A BED RIVAS AND SHE ENCOURAGED TO BE ASSISSTED TO THE BATHEOOM BUT EVERY TIME SHE CALLS TO CHANGE HER THAT SHE WAS SLEEPING WHEN SHE VOIDED , I TOLD HER THAT IF SHE DOES NOT TRY TO GET OUT OF BED SHE WILL ALWAYS FEEL WEAK .
[2021-07-10 07:26] LABS: ANION GAP 19.1 (8-16); CARBON DIOXIDE 20.8 mmol/L (21-32); CREATININE 0.9 mg/dL (0.6-1.3)
[2021-07-10] MEDS: BLOOD GLUCOSE MONITORING 1 DEV DEV FS SCH ×4 (07:26→20:29)
[2021-07-10] MEDS: INSULIN LISPRO SLIDING SCALE 100 UNITS/ML VIAL SUBQ PRN ×2 (07:28→18:32)
[2021-07-10] MEDS: INSULIN LISPRO 100 UNITS/ML VIAL SUBQ SCH ×4 (07:30→20:57)
[2021-07-10 07:31] LABS: BASOPHILS # (AUTO) 0.1 K/uL (0.00-0.22); EOSINOPHILS % (AUTO) 0.6 % (0.0-4.0); HEMATOCRIT 30.9 % (36-48); HEMOGLOBIN 10.5 g/dL (12.0-16.0); LYMPHOCYTES # (AUTO) 1.6 K/uL (2.5-16.5); MEAN CORPUSCULAR HEMOGLOBIN 31 pg (27-31); MEAN CORPUSCULAR HGB CONC 34 g/dL (33-37); MEAN CORPUSCULAR VOLUME 90.7 fL (80-94); MONOCYTES # (AUTO) 0.9 K/uL (0.8-1.0); MONOCYTES % (AUTO) 16.2 % (1.7-9.3); NEUTROPHILS % (AUTO) 53.2 % (42.2-75.2); PLATELET COUNT (AUTO) 171 K/uL (140-450); RED BLOOD CELL COUNT(AUTO) 3.41 MIL/uL (4.20-5.40); RED CELL DISTRIBUTION WIDTH 13.1 % (11.6-13.7); WHITE BLOOD COUNT (AUTO) 5.6 K/uL (4.8-10.8)
[2021-07-10 07:50] LABS: POTASSIUM 2.9 mmol/L (3.5-5.1)
[2021-07-10 07:52] LABS: MAGNESIUM 1.4 mg/dL (1.8-2.4); PHOSPHORUS 2.9 mg/dL (2.5-4.9)
[2021-07-10] MEDS: lisinopriL 20 MG TAB PO SCH (09:00)
[2021-07-10] MEDS: ESCITALOPRAM 20 MG TAB PO SCH (09:00)
[2021-07-10] MEDS ORDERED: POTASSIUM CHLORIDE 10 MEQ TABER PO SCH (09:00)
[2021-07-10] MEDS: METOPROLOL 50 MG TAB PO SCH (10:09)
[2021-07-10] MEDS: PANTOPRAZOLE 40 MG INJ VIAL IVP SCH (10:09)
[2021-07-10] MEDS ORDERED: NON-FORMULARY ITEM (Dapagliflozin Propanediol (Farxiga) 10 MG) PO SCH (10:25)
[2021-07-10] MEDS: POTASSIUM CHLORIDE 10 MEQ TABER PO SCH ×2 (11:25→21:00)
[2021-07-10] MEDS: KCL 20 MEQ/WATER INJ PREMIX 200 ML IV PRN (11:38)
[2021-07-10] MEDS: INSULIN LANTUS 100 UNITS/ML 10 ML VIAL SUBQ SCH (12:45)
[2021-07-10 20:00] VITALS: BP 120/70
--- NOTE | 2021-07-10 20:00 | NUR ---
PATIENT WAS RECEIVED AWAKE AND ALERT, NO S/S OF DISTRESS NOR GRIMACING FOR PAIN.
[2021-07-10] MEDS: ATORVASTATIN 20 MG TAB PO SCH (21:00)
[2021-07-10] MEDS: MAGNESIUM OXIDE 400 MG TAB PO SCH (21:00)
--- NOTE | 2021-07-10 21:00 | NUR ---
V/S WNL, ALL DUE MEDS WERE GIVEN, TOLERATED WELL BY THE PATIENT.
--- NOTE | 2021-07-11 | NUR ---
PATIENT ASKED TO BE PUT ON BED RIVAS. PEEH WITH CLEAR YELLOW OF REGULAR AMOUNT, ABOUT 500 ML URINE.
[2021-07-11 00:03] VITALS: BP 120/70
--- NOTE | 2021-07-11 01:00 | NUR ---
PATIENT ASKED TO TO CLEANED. PATIENT CLEANED AND BEDDING WAS CHANGED WELL THE GOWN.
[2021-07-11] MEDS: NACL 0.9% 1,000 ML IV SCH ×5 (02:00→22:35)
--- NOTE | 2021-07-11 02:00 | NUR ---
PATIENT USED THE BEDPAN AND WAS CLEANED AGAIN.
[2021-07-11 04:00] VITALS: BP 143/80
[2021-07-11] MEDS: BLOOD GLUCOSE MONITORING 1 DEV DEV FS SCH ×4 (06:50→21:28)
[2021-07-11 06:53] LABS: BASOPHILS % (AUTO) 0.6 % (0.0-2.0); EOSINOPHILS # (AUTO) 0.1 K/uL (0-0.4); HEMATOCRIT 30.9 % (36-48); HEMOGLOBIN 10.4 g/dL (12.0-16.0); LYMPHOCYTES # (AUTO) 1.6 K/uL (2.5-16.5); LYMPHOCYTES % (AUTO) 29.2 % (20.5-51.1); MEAN CORPUSCULAR HEMOGLOBIN 31 pg (27-31); MEAN CORPUSCULAR HGB CONC 34 g/dL (33-37); MEAN CORPUSCULAR VOLUME 90.9 fL (80-94); MONOCYTES # (AUTO) 1.2 K/uL (0.8-1.0); MONOCYTES % (AUTO) 21.7 % (1.7-9.3); NEUTROPHILS # (AUTO) 2.7 K/uL (1.8-7.7); NEUTROPHILS % (AUTO) 47.5 % (42.2-75.2); PLATELET COUNT (AUTO) 190 K/uL (140-450); RED BLOOD CELL COUNT(AUTO) 3.39 MIL/uL (4.20-5.40); RED CELL DISTRIBUTION WIDTH 12.9 % (11.6-13.7); WHITE BLOOD COUNT (AUTO) 5.6 K/uL (4.8-10.8)
[2021-07-11] MEDS: INSULIN LISPRO SLIDING SCALE 100 UNITS/ML VIAL SUBQ PRN ×4 (06:56→21:31)
[2021-07-11 07:09] LABS: CARBON DIOXIDE 22.8 mmol/L (21-32); CREATININE 0.8 mg/dL (0.6-1.3); MAGNESIUM 1.3 mg/dL (1.8-2.4); PHOSPHORUS 2.9 mg/dL (2.5-4.9); TOTAL BILIRUBIN 0.3 mg/dL (0.0-1.0)
--- NOTE | 2021-07-11 07:40 | NUR ---
BS WAS 202, 4 UNITS REG. INSULIN WAS COVERED IN HER ABD SQ, TOLERATED, ALL REPORTS WERE GIVEN, TRANSFER OF CARE ENDORSED.
[2021-07-11 08:00] VITALS: BP 127/74
--- NOTE | 2021-07-11 08:00 | NUR ---
NURSE REPORT REPORT OBTAINED FROM GREASE RACK WORKER AND THIS NURSE ASSUMED CARE OF PATIENT. VSS. AFEB. NO C/O PAIN OR DISCOMFORT. IV NS AT 150 ML/HR INFUSING INTO R FOREARM.
[2021-07-11 08:14] LABS: POTASSIUM 2.8 mmol/L (3.5-5.1)
[2021-07-11] MEDS ORDERED: MAG SULF 2000 MG/WATER PREMIX 100 ML IV ONE (08:40)
[2021-07-11] MEDS: PANTOPRAZOLE 40 MG INJ VIAL IVP SCH (09:00)
[2021-07-11] MEDS: MAGNESIUM OXIDE 400 MG TAB PO SCH ×2 (09:03→21:59)
[2021-07-11] MEDS: POTASSIUM CHLORIDE 10 MEQ TABER PO SCH ×3 (09:03→23:54)
[2021-07-11] MEDS: ESCITALOPRAM 20 MG TAB PO SCH (09:03)
[2021-07-11] MEDS: lisinopriL 20 MG TAB PO SCH (09:03)
[2021-07-11] MEDS: INSULIN LANTUS 100 UNITS/ML 10 ML VIAL SUBQ SCH (09:09)
[2021-07-11] MEDS ORDERED: POTASSIUM CHLORIDE 40 MEQ, LIDOCAINE MPF 1% 25 MG in NACL 0.9% 250 ML IV SCH (09:30)
--- NOTE | 2021-07-11 10:00 | NUR ---
NURSE NOTES LAB CALLED AND K IS 2.8. PT ON K-DUR AND MD AT [facility]- DR JODIE DENISE. HE WAS AWARE OF THE K AND MAG LEVEL OF 1.3. RECEIVE 2 GM OF MAG SULFATE AND THEN IV KCL TO BE GIVEN.
[2021-07-11] MEDS: INSULIN LISPRO 100 UNITS/ML VIAL SUBQ SCH ×2 (11:30→18:46)
[2021-07-11 12:00] VITALS: BP 104/66
--- NOTE | 2021-07-11 12:00 | NUR ---
NURSE CARE VSS. AFEB. NO C/O PAIN OR DISCOMFORT, BUT C/O BEING TIRED. BOYFRIEND PAVAN ASKED FOR UPDATES AND PARENTS IN TO VISIT PATIENT.
[2021-07-11] MEDS: POTASSIUM CHLORIDE 40 MEQ in NACL 0.45% 1,000 ML IV SCH ×2 (13:27→18:49)
--- NOTE | 2021-07-11 13:27 | NUR ---
NURSE NOTES KCL 40 MEQ IN XYLOCAINE GIVEN AT 1327. IV 1/2 NS & 40 KCL AT 100 ML/HR.
[2021-07-11 16:00] VITALS: BP 112/66
--- NOTE | 2021-07-11 16:00 | NUR ---
NURSE NOTES K 4.0. NO MAG LEVEL DONE AT 1600. VSS. AFEB. PATIENT HAS BEEN SLEEPING MOST OF THE DAY.
[2021-07-11 16:59] LABS: ANION GAP 12.2 (8-16); CARBON DIOXIDE 25.8 mmol/L (21-32); CREATININE 0.9 mg/dL (0.6-1.3)
--- NOTE | 2021-07-11 19:30 | NUR ---
NURSE REPORT REPORT GIVEN TO NIGHT NURSE SUE TO ASSUME CARE OF PATIENT. SBAR GIVEN. ALL QUESTIONS ANSWERED.
[2021-07-11 20:00] VITALS: BP 138/79
--- NOTE | 2021-07-11 20:00 | NUR ---
PATIENT WAS RECEIVED IN BED ALERT AND AWAKE, FAMILY AT THE BEDSIDE.
--- NOTE | 2021-07-11 21:00 | NUR ---
ALL DUE MEDS GIVEN, BS WAS ELEVATED, NEEDING INSULIN COVERAGE, REFER TO EMAR NOTES, TOLERATED IT WELL V/S WNL.
[2021-07-11] MEDS: ATORVASTATIN 20 MG TAB PO SCH (21:59)
--- NOTE | 2021-07-11 22:41 | NUR ---
PATIENT ASKED TO HAVE HERSELF BE CLEANED HAD NUMBER 1 IN BEDPAN, CLEAR YELLOW URINE OF ADEQUATE AMOUNT, UNMEASURED.
--- NOTE | 2021-07-12 00:30 | NUR ---
PATIENT ASKED TO HAVE HERSELF BE CLEANED HAD NUMBER 1 IN BEDPAN, CLEAR YELLOW URINE OF ADEQUATE AMOUNT, UNMEASURED.
[2021-07-12] MEDS: POTASSIUM CHLORIDE 40 MEQ in NACL 0.45% 1,000 ML IV SCH (02:00)
--- NOTE | 2021-07-12 02:00 | NUR ---
PATIENT WAS CALMLY ASLEEP.
--- NOTE | 2021-07-12 03:30 | NUR ---
NEW ORDER FROM DR. DIANE BAHENA TO D/C POTASSIUM 40 MEQ IN HALF NS IN 1 LITER AT 100 ML/HOUR.
--- NOTE | 2021-07-12 03:35 | NUR ---
INFUSION WAS STOPPED.
[2021-07-12 04:00] VITALS: BP 131/79
[2021-07-12] MEDS: NACL 0.9% 1,000 ML IV SCH ×2 (05:20→11:55)
[2021-07-12] MEDS: BLOOD GLUCOSE MONITORING 1 DEV DEV FS SCH ×2 (06:36→11:30)
[2021-07-12] MEDS: INSULIN LISPRO SLIDING SCALE 100 UNITS/ML VIAL SUBQ PRN ×3 (06:37→16:08)
[2021-07-12] MEDS: INSULIN LISPRO 100 UNITS/ML VIAL SUBQ SCH ×2 (06:39→12:49)
[2021-07-12 07:44] LABS: BASOPHILS % (AUTO) 0.3 % (0.0-2.0); EOSINOPHILS # (AUTO) 0.1 K/uL (0-0.4); EOSINOPHILS % (AUTO) 1.1 % (0.0-4.0); HEMATOCRIT 31.2 % (36-48); HEMOGLOBIN 10.7 g/dL (12.0-16.0); LYMPHOCYTES # (AUTO) 1.9 K/uL (2.5-16.5); LYMPHOCYTES % (AUTO) 35.2 % (20.5-51.1); MEAN CORPUSCULAR HEMOGLOBIN 31 pg (27-31); MEAN CORPUSCULAR HGB CONC 34 g/dL (33-37); MEAN CORPUSCULAR VOLUME 89.7 fL (80-94); MONOCYTES # (AUTO) 1.5 K/uL (0.8-1.0); NEUTROPHILS # (AUTO) 1.9 K/uL (1.8-7.7); NEUTROPHILS % (AUTO) 35.4 % (42.2-75.2); PLATELET COUNT (AUTO) 206 K/uL (140-450); RED BLOOD CELL COUNT(AUTO) 3.48 MIL/uL (4.20-5.40); WHITE BLOOD COUNT (AUTO) 5.3 K/uL (4.8-10.8)
--- NOTE | 2021-07-12 07:46 | NUR ---
REPORTS WERE GIVEN, PATIENT WAS ENDORSED.
[2021-07-12 08:00] VITALS: BP 135/75
--- NOTE | 2021-07-12 08:00 | NUR ---
NURSE REPORT REPORT OBTAINED FROM NIGHT NURSE SUE AND THIS NURSE ASSUMED CARE OF PATIENT. RECEIVED PATIENT ASLEEP AT BEGINNING OF DAY SHIFT. VSS. AFEB. BOTH SL TO BOTH ARMS INTACT AND SL. NO C/O PAIN OR DISCOMFORT.
[2021-07-12 08:33] LABS: ALBUMIN 2.1 g/dL (3.4-5.0); ANION GAP 12.5 (8-16); CARBON DIOXIDE 26.4 mmol/L (21-32); CREATININE 0.7 mg/dL (0.6-1.3); PHOSPHORUS 2.4 mg/dL (2.5-4.9); POTASSIUM 3.9 mmol/L (3.5-5.1); TOTAL BILIRUBIN 0.2 mg/dL (0.0-1.0)
[2021-07-12] MEDS: INSULIN LANTUS 100 UNITS/ML 10 ML VIAL SUBQ SCH (09:00)
[2021-07-12] MEDS: MAGNESIUM OXIDE 400 MG TAB PO SCH (09:18)
[2021-07-12] MEDS: POTASSIUM CHLORIDE 10 MEQ TABER PO SCH (09:18)
[2021-07-12] MEDS: PANTOPRAZOLE 40 MG INJ VIAL IVP SCH (09:19)
[2021-07-12] MEDS: lisinopriL 20 MG TAB PO SCH (09:20)
[2021-07-12] MEDS: ESCITALOPRAM 20 MG TAB PO SCH (09:20)
--- NOTE | 2021-07-12 10:00 | NUR ---
NURSE NOTES PATIENT UP OOB TO USE THE BATHROOM. SHE WAS INCONTINENT OF URINE SHE WALKED FROM BED TO BATHROOM, BUT HAD A PAD BETWEEN HER LEGS. URINE WAS CAUGHT IN PAD. MEDS TAKEN WITH STUDENT NURSE WHILE THIS NURSE OBSERVED HER. ALL MEDS TAKEN. PATIENT ALSO HAD A BOWEL MOVEMENT.
[2021-07-12 11:10] LABS: MAGNESIUM 1.6 mg/dL (1.8-2.4)
[2021-07-12] MEDS ORDERED: METF-350 PO (11:16)
[2021-07-12] MEDS ORDERED: INSU100S22 SUBQ (11:16)
--- NOTE | 2021-07-12 13:30 | NUR ---
NURSE NOTES PATIENT INCONTINENT OF URINE WHILE ASLEEP IN THE BED. CLEANSED BY THE STUDENT.
--- NOTE | 2021-07-12 13:34 | NUR ---
CALL PLACE TO FAMILY [phone] LEAVE MESSAGE MADE AWARE PT HAS DISCHARGED ORDER
[2021-07-12 15:19] VITALS: BP 135/75
--- NOTE | 2021-07-12 15:30 | NUR ---
DISCHRGE INSTRUCTIONS D/C INSTRUCTIONS GIVEN TO THE PATIENT AND HOW TO GIVE SELF HER INSULIN WITH USE OF AVOCADO AND INSULIN SYRINGE. PATIENT SIGNED INSTRUCTIONS AND VERBALIZED UNDERSTANDINGS.
--- NOTE | 2021-07-12 16:40 | NUR ---
DISCHARGE NOTES D/C TO HOME, AFTER MOTHER BROUGHT IN CLOTHES. SL X 2 REMOVED WITH CATHETER INTACT. DC'D VIA W/C.
== END 2021-07-12 17:30 | disposition home or self-care (01) | DRG 637 ==
LOC: MED 08:01 → MIC 10:30 → MTU 07-07 22:10
PROVIDERS: ADMIT Hospitalist; ATTEND Hospitalist
DX: E11.10 Type 2 diabetes mellitus with ketoacidosis without coma (principal); G93.41 Metabolic encephalopathy; N17.0 Acute kidney failure with tubular necrosis; R65.10 Systemic inflammatory response syndrome (SIRS) of non-infectious origin without acute organ dysfunction; E44.0 Moderate protein-calorie malnutrition; E87.0 Hyperosmolality and hypernatremia; E87.6 Hypokalemia; E86.0 Dehydration; R00.0 Tachycardia, unspecified; E83.39 Other disorders of phosphorus metabolism; Z20.822 Contact with and (suspected) exposure to COVID-19; I11.9 Hypertensive heart disease without heart failure; E78.5 Hyperlipidemia, unspecified; E83.42 Hypomagnesemia; Z98.891 History of uterine scar from previous surgery; Z83.3 Family history of diabetes mellitus; Z88.0 Allergy status to penicillin; Z79.899 Other long term (current) drug therapy; Z68.25 Body mass index [BMI] 25.0-25.9, adult
CPT/HCPCS: 36415; 36600; 71045; 80048; 80053; 80305; 81001; 82803; 82948; 83036; 83690; 83735; 83880; 84100; 84484; 85025; 87081; 93005; 96361; 96365; 96366; 96368; 96375; 97110; 97116; 97163-GP; 97530; 99285; C9113; J1644; J1815; J2001; J2405; J3475; J3480; J3490; J7030; Q0092